=== PATIENT | male | born 1990 | race Caucasian/White ===

== ENCOUNTER 2021-08-05 01:02 | Emergency (ER) | payer SELFPAY ==
[2021-08-06] MEDS ORDERED: MUPI22OI30 TOP (15:46)
== END 2021-08-05 03:41 | disposition left against medical advice (07) ==
LOC: ER 01:03
DX: M79.602 Pain in left arm (principal); Z53.21 Procedure and treatment not carried out due to patient leaving prior to being seen by health care provider

== ENCOUNTER 2021-08-06 12:35 | Emergency (ER) | payer SELFPAY ==
[~2021-08-06] VITALS: Ht 162.6 cm; Wt 60.0 kg
[2021-08-06] MEDS ORDERED: mupirocin 2% ointment 22GM TP STA (15:05)
[2021-08-06] MEDS ORDERED: MUPI22OI30 TOP (15:46)
--- NOTE | 2021-08-06 18:26 | NUR ---
PATIENT IN NO DISTRESS. EVAL DONE BY SARAH SUN. INFORMATION ASSOC IS PLACING SPLINT THAT IS REPLACING THE ONE THAT THE PATIENT DAMMAGED.
[2021-08-06 18:27] VITALS: BP 126/80
== END 2021-08-06 18:30 | disposition home or self-care (01) ==
LOC: ER 12:35
DX: T23.162A Burn of first degree of back of left hand, initial encounter (principal); T23.122A Burn of first degree of single left finger (nail) except thumb, initial encounter; F17.200 Nicotine dependence, unspecified, uncomplicated; Z88.2 Allergy status to sulfonamides; Z79.2 Long term (current) use of antibiotics; Z87.81 Personal history of (healed) traumatic fracture; X06.2XXA Exposure to ignition of other clothing and apparel, initial encounter; Y93.89 Activity, other specified; Y92.89 Other specified places as the place of occurrence of the external cause; Y99.8 Other external cause status
CPT/HCPCS: 16020; 29105; 73090; 99283